=== PATIENT | female | born 2000 | race American Indian/Alaskan Native ===

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

== ENCOUNTER 2021-09-11 12:42 | Emergency (ER) | payer SELFPAY ==
[2021-09-11 13:10] VITALS: BP 139/85
[2021-09-11] MEDS ORDERED: IBUPROFEN 800 MG TAB PO ONE (13:13)
[2021-09-11] MEDS ORDERED: dexAMETHasone 4 MG/ML VIAL IM ONE (13:13)
--- NOTE | 2021-09-11 13:14 | Emergency Department Report ---
Minor Respiratory - HPI Chief Complaint: Sore Throat Stated Complaint: SWOLLEN TONSILS Time Seen by Provider: 09/11/21 13:12 Duration: 3 Days Pain Location: Throat Severity: mild Minor Respiratory: Yes Sore Throat, Yes Able to Tolerate Fluids, No Rhinorrhea, No Ear Pain, No Cough, No Sick Contacts, No Hemoptysis, No Chest Pain, No Shortness of Breath, No Fever Other History: 21 yo comes to er with swollen tonsils and sore throat. non ill appearing on arrival. abc intact ED Review of Systems ROS: Stated complaint: SWOLLEN TONSILS Other details as noted in HPI Comment: All other systems reviewed and negative ED Past Medical Hx - Past Medical History Previous Medical History?: Yes Hx Psychiatric Treatment: Yes (anxiety) - Surgical History Past Surgical History?: No - Family History Family history: no significant - Social History Smoking Status: Never Smoker Substance Use Type: None - Medications Home Medications: Home Medications Medication Instructions Recorded Confirmed Last Taken Type Amoxicillin [Trimox CAP] 500 mg PO BID #20 capsule 09/11/21 Unknown Rx Minor Respiratory Exam - Exam General: Vital signs noted. No distress. Alert and acting appropriately. HEENT: Yes Pharyngeal Erythema, Yes Moist Mucous Membranes, No Pharyngeal Exudates, No Rhinorrhea, No Conjuctival Injection, No Frontal Tenderness, No Maxillary Tenderness Ear: Neither TM Bulge, Neither TM Erythema, Neither EAC Pain, Neither EAC Discharge Neck: Yes Supple, No Adenopathy Lungs: Yes Good Air Exchange, No Wheezes, No Ronchi, No Stridor, No Cough, No Labored Respirations, No Retractions, No Use of Accessory Muscles, No Other Abnormal Lung Sounds Heart: Yes Regular, No Murmur Abdomen: Yes Normal Bowel Sounds, No Tenderness, No Peritoneal Signs Skin: No Rash, No Edema Neurologic: Alert and oriented, no deficits. Musculoskeletal: Unremarkable. ED Course Vital Signs 09/11/21 13:08 Temperature 98.4 F Pulse Rate 92 H Respiratory 18 Rate Blood Pressure 139/85 [Right] O2 Sat by Pulse 99 Oximetry ED Medical Decision Making - Medical Decision Making Vital Signs 09/11/21 13:08 Temperature 98.4 F Pulse Rate 92 H Respiratory 18 Rate Blood Pressure 139/85 [Right] O2 Sat by Pulse 99 Oximetry taking po no ludwigs no abscess abc intact medicated with decadron and motrin in ER for pain dc home with rx for amox pt dc home with dc plan of care including rx/ pain management and follow up. She verbalizes understanding of plan of care - Differential Diagnosis pharyngitis Critical care attestation.: If time is entered above; I have spent that time in minutes in the direct care of this critically ill patient, excluding procedure time. ED Disposition Clinical Impression: Tonsillitis Disposition: 01 HOME / SELF CARE / HOMELESS Is pt being admited?: No Does the pt Need Aspirin: No Condition: Stable Instructions: Tonsillitis, [id number] Additional Instructions: stay well hydrated meds as ordered today follow up with pcp next week to be sure you are getting better referral below Prescriptions: Amoxicillin [Trimox CAP] 500 mg PO BID #20 capsule Referrals: BRENDA TIWARI MD [Staff Physician] - 3-5 Days Time of Disposition: 13:13
== END 2021-09-11 13:47 | disposition home or self-care (01) ==
LOC: ED 12:42
DX: J03.90 Acute tonsillitis, unspecified (principal); F41.9 Anxiety disorder, unspecified
CPT/HCPCS: 96372; 99282; J1100